=== PATIENT | female | born 1955 | race Caucasian/White ===

== ENCOUNTER 2025-01-28 19:53 | Emergency (ER) | payer OTHER ==
[~2025-01-28] VITALS: Ht 167.6 cm; Wt 112.9 kg
[2025-01-28] MEDS ORDERED: MIRAPEX PO (20:26)
[2025-01-28] MEDS ORDERED: LEXAPRO20 MG PO (20:26)
[2025-01-28] MEDS ORDERED: NATURE'S BLEND F1 MG PO (20:27)
[2025-01-28] MEDS ORDERED: SINGULAIR4 MG PO (20:27)
[2025-01-28] MEDS ORDERED: METHOCARBAMOL 500 MG TAB PO ONE (20:45)
[2025-01-28] MEDS ORDERED: METHOCARBAMOL500 M1 PO (20:48)
[2025-01-28] MEDS ORDERED: PREDNISONE20 M1 PO (20:48)
== END 2025-01-28 20:56 | disposition home or self-care (01) ==
LOC: ED 19:53
DX: S39.012A Strain of muscle, fascia and tendon of lower back, initial encounter (principal); M25.552 Pain in left hip; W01.0XXA Fall on same level from slipping, tripping and stumbling without subsequent striking against object, initial encounter; Y93.89 Activity, other specified; Y92.89 Other specified places as the place of occurrence of the external cause; Y99.8 Other external cause status